=== PATIENT | male | born 1935 | race Caucasian/White ===

== ENCOUNTER 2023-10-07 18:37 | Observation (INO) | payer MEDICARE, OTHER, SELFPAY ==
[2023-10-07 15:50] VITALS: BP 140/61
[2023-10-07 16:00] VITALS: BP 137/59
[2023-10-07 16:06] LABS: % Basophils 0.2 % (0-2); % Eosinophils 1.3 % (0-6); % Immature Granulocytes 0.3 % (0-0.5); % Lymphocytes 14.2 % (20.5-51.1); % Monocytes 11.9 % (1.7-9.3); % Neutrophils 72.1 % (42.2-75.2); Absolute Eosinophils 0.1 10^3/uL (0-0.7); Absolute Lymphocytes 1.5 10^3/uL (1.2-3.4); Absolute Monocytes 1.2 10^3/uL (0.1-0.6); Absolute Neutrophils 7.4 10^3/uL (1.4-6.5); Hemoglobin 13.8 g/dL (13.0-18.0); Mean Corp Hgb Conc. 35.4 g/dL (33.0-37.0); Mean Corpuscular Hgb 33.9 pg (27.0-31.0); Mean Corpuscular Volume 95.8 fL (80.0-94.0); Mean Platelet Volume 10.6 fL (7.4-10.4); Nucleated Red Blood Cells % 0 % (-); Platelet Count 188 10^3/uL (130-400); Red Blood Cell Count 4.07 10^6/uL (4.70-6.10); Red Cell Dist. Width 12.4 % (11.5-14.5); White Blood Cell Count 10.3 10^3/uL (4.8-10.8)
[2023-10-07 16:52] LABS: Blood Urea Nitrogen 18 mg/dl (9-20); Calcium 8.5 mg/dl (8.4-10.2); Carbon Dioxide 24 mmol/L (22-30); Chloride 102 mmol/L (98-107); Glucose 167 mg/dl (70-99); Sodium 133 mmol/L (135-145); eGFR > 60.00
[2023-10-07 17:00] VITALS: BP 135/70
[2023-10-07] MEDS: NSS 1000 IV ×2 (17:03→21:56)
[2023-10-07 17:09] LABS: Venous Blood Gas B.E. 0.3 mmol/L (-4 to +4); Venous Blood Gas HCO3 23.5 mmol/L (22-27); Venous Blood Gas O2 Sat % 98.8 %; Venous Blood Gas pCO2 33 mmHg (35-48); Venous Blood Gas pH 7.46 (7.32-7.43); Venous Blood Gas pO2 95 mmHg (30-50)
[2023-10-07 17:16] LABS: Potassium 3.8 mmol/L (3.5-5.1)
--- NOTE | 2023-10-07 17:55 | ED.GENMED ---
History of Present Illness
General
Chief Complaint: Weakness
Time Seen by Provider: 10/07/23 16:10
Travel History
Have you had any contact with someone who has COVID-19?: No
Do you have any symptoms of coronavirus? Fever > 100 degrees, chills, cough, shortness of breath, sore throat, loss of taste or smell, muscle aches, or headache?: No
History of Present Illness
History of Present Illness:
87-year-old male with history of dementia, hypertension, and hyperlipidemia presents to the emergency department for evaluation of generalized weakness. Resides at [facility]. Apparently on Wednesday he had a urinalysis suggestive
of UTI and was started on cephalexin 500 mg 3 times daily. Since that time his p.o. intake is diminished and according to family while he is normally quite active and ambulates with a walker he has been unable to get up without assist x 2. He is
oriented to his baseline. Outpatient chest x-ray today was suggestive of pneumonia and he was started on doxycycline this morning. Patient denies any complaints at this time
Past History
Past History
ED Past Medical History: HTN, Hypercholesterolemia and Psychiatric (Anxiety)
Social History
Tobacco: Former smoker
Alcohol: Occasional
Drug: None
Personal:
Living: with family
Family History
Family History: Other (non contributory)
Review of Systems
Review of Systems
Allergies reviewed?: Yes
All Other Systems: ROS reviewed and negative except as documented in HPI and ROS
Phy Exam
Physical Exam
Physical Exam:
GEN: Well appearing, NAD, WDWN
HEENT: Oral mucosa dry no scleral icterus
Cardiac: Regular rate and rhythm, no murmurs
Lung: No respiratory distress, no tachypnea, lungs clear to auscultation bilaterally
MSK: No gross deformity or injuries
Skin: Good color, no pallor or jaundice, no rashes
Neuro: Alert and oriented to self only, disoriented to time and events which is baseline per family, moves all 4 extremities symmetrically however profoundly weak and unable to maintain for more than a few seconds against gravity x 4
Psych: Calm, cooperative
Course
Orders/Labs/Results
Orders:
Orders
10/07/23 15:56
Complete Blood Count/With Diff Urgent
10/07/23 16:26
Basic Metabolic Panel Urgent
10/07/23 16:56
CR Chest - 2 Views Urgent
Comment:
Reason For Exam: weakness
10/07/23 16:59
0.9% Sodium Chloride 1000 ml [Nss] 1,000 ml IV BOLUS
10/07/23 17:01
Potassium Urgent
Venous Blood Gas Urgent
%Oxygen/Room Air: 97
10/07/23 17:38
Urinalysis Reflex To Culture Urgent
Date Specimen was Collected: 10/07/23
Time Specimen was Collected: 17:39
10/07/23 17:54
Straight Cath As Directed
Frequency: One time now
Abnormal Lab Results
10/07/23 10/07/23 10/07/23
15:56 16:26 17:01
RBC 4.07 L 10^6/uL
(4.70-6.10)
MCV 95.8 H fL
(80.0-94.0)
MCH 33.9 H pg
(27.0-31.0)
MPV 10.6 H fL
(7.4-10.4)
Absolute Neuts (auto) 7.4 H 10^3/uL
(1.4-6.5)
Absolute Monos (auto) 1.2 H 10^3/uL
(0.1-0.6)
Lymphocytes % 14.2 L %
(20.5-51.1)
Monocytes % 11.9 H %
(1.7-9.3)
VBG pH 7.46 H
(7.32-7.43)
VBG pCO2 33 L mmHg
(35-48)
VBG pO2 95 H mmHg
(30-50)
Sodium 133 L mmol/L
(135-145)
Creatinine 0.5 L mg/dL
(0.7-1.3)
Glucose 167 H mg/dl
(70-99)
10/07/23 15:56
10/07/23 17:01
Vital Signs
Initial and Last Documented VS:
Initial Vital Signs
Temp Pulse Resp BP Pulse Ox
98.0 F 75 18 140/61 98
10/07/23 15:50 10/07/23 15:50 10/07/23 15:50 10/07/23 15:50 10/07/23 15:50
Last Documented Vital Signs
Temp Pulse Resp BP Pulse Ox
98.0 F 74 16 135/70 97
10/07/23 15:50 10/07/23 17:15 10/07/23 17:15 10/07/23 17:00 10/07/23 17:15
MDM/Problems Addressed
MDM/Problems Addressed:
Unclear etiology to the patient's weakness. Do not see any indication for CT of the head as he is at his neurologic baseline. Given significant functional decline that occurred rapidly will admit for further observation and IV fluids as he does
appear clinically dry
*Critical Care Note
Total Time (30-74mins, 75-104mins- exclusive of procedures): Not Applicable
ED Attending Note
-
Portions of this chart may have been created with voice recognition software.� Occasional wrong word or��sound alike� substitutions may have occurred due to the inherent limitations of voice recognition software.
Discharge Plan
Departure
Patient Disposition: Admit
Date of Disposition: 10/07/23
Time of Disposition: 17:58
Admit to: Med/Surg
Presentation/result/management discussed w/ accepting MD/DO: Hospitalist
Discharge Problem:
Generalized weakness
Prescriptions:
No Action
aspirin 81 MG tablet,delayed release (DR/EC)
81 mg PO DAILY
potassium chloride 20 mEq Packet
20 meq PO DAILY Qty: 0
atorvastatin 40 mg tablet
40 mg PO DAILY
memantine 10 mg tablet
10 mg PO DAILY
galantamine 24 mg capsule,ext rel. pellets 24 hr
24 mg PO DAILY
cholecalciferol (vitamin D3) [Vitamin D3] 25 mcg (1,000 unit) Capsule
25 mcg PO DAILY
coenzyme Q10 200 mg Capsule
200 mg PO DAILY
magnesium hydroxide [Milk of Magnesia] 400 mg/5 mL Suspension
30 ml PO HS PRN (Reason: if no bm x 3 days)
cyanocobalamin (vitamin B-12) [Vitamin B-12] 500 mcg Tablet
1,000 mcg PO DAILY
psyllium Powder
1 tsp PO DAILY
bisacodyl [Dulcolax (bisacodyl)] 10 mg Suppository
10 mg CA DAILY PRN (Reason: if no results for MOM)
Acidophilus Capsule
1 cap PO BID
doxycycline hyclate 100 mg tablet
100 mg PO BID
calcium carbonate-vitamin D3 [Calcium 600 + D(3)] 600 mg-10 mcg (400 unit) Tablet
1 tab PO DAILY
magnesium oxide 400 mg magnesium Tablet
400 mg PO Q48H
acetaminophen 325 mg tablet
650 mg PO Q4H PRN (Reason: mild pain/temp> 100.4F)
olanzapine 2.5 mg tablet
2.5 mg PO HS
Interventions
Interventions:
*Risk Screen - Suicide Last Done: 10/07/23 15:45
*General Assessment Last Done: 10/07/23 15:45
*Neglect/Abuse Screening Last Done: 10/07/23 15:45
*ED COVID-19 Vaccine History Last Done: 10/07/23 15:45
ED- Cardiac Assessment Last Done: 10/07/23 15:45
ED- Neurological Assessment Last Done: 10/07/23 15:45
ED- Pulmonary Assessment Last Done: 10/07/23 15:45
[2023-10-07 18:00] VITALS: BP 118/81
[2023-10-07 18:02] LABS: Urine Albumin Trace (Neg - Trace); Urine Bilirubin Negative (Negative); Urine Character Clear (Clear); Urine Color Yellow; Urine Glucose Negative (Negative); Urine Ketone Negative (Negative); Urine Leukocyte 1+ (Negative); Urine Nitrite Negative (Negative); Urine Occult Blood 3+ (Negative); Urine Specific Gravity 1.025 (<1.030); Urine Urobilinogen Negative (Neg - 1+)
--- NOTE | 2023-10-07 18:23 | HPS.HSE ---
Family Physician
-
Family Physician: Quique Cardona
Chief Complaint
-
Weakness
History of Present Illness
87-year-old male with dementia [facility] from [facility] for evaluation of anorexia, weakness for the past few days. Poor oral intake.
Medical History
Past Medical History
Past Medical History: Reports Other
Additional Past Medical History:
Alzheimer's dementia
Essential hypertension
Hyperlipidemia
Anxiety disorder
Past Surgical History: Reports None
Social History
Tobacco: Non-smoker
Alcohol: None
Drug: None
Living: Group Home
Family History
Family History: Not pertinent
Allergies / Home Medications
Allergies reflects when Allergies were last updated in [employer].
Home Medications with original date entered in [employer]
Allergy/Medication List:
Allergies
Allergy/AdvReac Type Severity Reaction Status Date / Time
No Known Allergies Allergy Verified 06/14/23 10:58
Home Medications
aspirin 81 mg tablet,delayed release 81 mg PO DAILY Blood Clot Prevention/Tx 10/06/16
potassium chloride 20 mEq oral packet 20 meq PO DAILY Supplement ##0 10/06/16
atorvastatin 40 mg tablet 40 mg PO DAILY High Cholesterol 05/25/23
galantamine 24 mg 24 hr capsule,extended release 24 mg PO DAILY cognitive decline 05/25/23
memantine 10 mg tablet 10 mg PO DAILY cognitive decline 05/25/23
cholecalciferol (vitamin D3) 25 mcg (1,000 unit) capsule (Vitamin D3) 25 mcg PO DAILY Supplement 06/14/23
coenzyme Q10 200 mg capsule 200 mg PO DAILY Supplement 06/14/23
Lactobacillus acidophilus (Acidophilus capsule) 1 cap PO BID 10/07/23
acetaminophen 325 mg tablet 650 mg PO Q4H PRN mild pain/temp> 100.4F 10/07/23
bisacodyl 10 mg rectal suppository (Dulcolax (bisacodyl)) 10 mg MS DAILY PRN if no results for MOM 10/07/23
calcium carbonate 600 mg-vitamin D3 10 mcg (400 unit) tablet (Calcium 600 + D(3)) 1 tab PO DAILY 10/07/23
cyanocobalamin (vitamin B-12) 500 mcg tablet (Vitamin B-12) 1,000 mcg PO DAILY 10/07/23
doxycycline hyclate 100 mg tablet 100 mg PO BID 10/07/23
magnesium hydroxide 400 mg/5 mL oral suspension (Milk of Magnesia) 30 ml PO HS PRN if no bm x 3 days 10/07/23
magnesium oxide 400 mg PO Q48H 10/07/23
olanzapine 2.5 mg tablet 2.5 mg PO HS 10/07/23
psyllium 1 tsp PO DAILY 10/07/23
Review of Systems
-
Unable to obtain full review of systems at this time due to: Dementia
History Source: Patient
A 12 point ROS was completed and negative except as noted: Yes
Physical Exam
Vital Signs
Vital Signs
Temp Pulse Resp BP Pulse Ox
98.0 F 74 16 135/70 97
10/07/23 15:50 10/07/23 17:15 10/07/23 17:15 10/07/23 17:00 10/07/23 17:15
Physical Exam
General: Well Developed, Well Nourished, No Apparent Distress and Comfortable
HEENT: NormoCephalic and Anicteric; No Moist mucous membranes
Respiratory: Clear
Cardiac: S1/S2 and Regular Rhythm
GI: Soft, Non Tender and Non Distended
Genito-urinary: Deferred by me
Musculoskeletal: No Clubbing, No Cyanosis and No Edema
Skin: Warm and Dry
Neuro: Awake and Alert; No Oriented
Hematologic/Lymphatic: No Lymphadenopathy
Psych: Calm
Laboratory Results
-
10/07/23 15:56
10/07/23 17:01
Laboratory Results
Total Bilirubin Cancelled 10/07/23 16:26
AST Cancelled 10/07/23 16:26
ALT Cancelled 10/07/23 16:26
Alkaline Phosphatase Cancelled 10/07/23 16:26
Impression/Plan
-
Volume depletion -admit to MedSurg. Continue IV fluids. Suspect progression of underlying dementia as the utility driver of his anorexia.
Dysphagia -rule out aspiration. states that he does cough with drinking water. Consult speech therapy.
Essential hypertension -stable.
Hyperlipidemia -on atorvastatin.
Alzheimer's dementia
DNR -confirmed with family.
I had a long discussion with patient's son and at the bedside. I recommend consideration of hospice given his dementia with suspected progression. Family is receptive and is interested in speaking with hospice. Consult will be placed.
[2023-10-07 20:34] VITALS: BP 147/80
[2023-10-07] MEDS: HEPARIN 5000 UNITS SC (21:55)
[2023-10-07] MEDS: VISBIOME 1 CAP PO (21:56)
[2023-10-07] MEDS: ZYPREXA 2.5 MG PO (21:56)
[2023-10-07 22:42] VITALS: BP 137/82
--- NOTE | 2023-10-07 22:51 | PTCARENOTE ---
Rec'd pt from the ER at 2030. pulled over in to bed and weighed on bed scale. Pt is awake but confused. Only able to state his name and birthday. is at the bedside. Assisted with his admission. She did make RN aware that pt is straight cathed
at the nursinghome every 8 hours. Fatuma CUEVAS was made aware and placed order. NSS started as ordered. Will continue to monitor closely.
[2023-10-08 08:02] VITALS: BP 162/93
--- NOTE | 2023-10-08 09:44 | W.PN.HOSP.TC ---
Addendum entered and electronically signed by Dimas Pope DO 10/08/23 11:12:
I spoke with patient's on the phone. I recommend discharge on hospice. She plans to meet with hospice today. Medically stable for discharge.
Original Note:
Today's Communication/Plan
-
Await hospice meeting
Discharge planning
Assessment / Plan
Assessment / Plan
Gen-awake, alert, no acute distress, confused
HEENT-NC, AT, anicteric, clear oral mm
Neck-supple
CV-reg, no M, +S1/S2
Lungs-clear B/L
Abd-soft, NT, ND
Ext-no edema
Musculoskeletal-no cyanosis, clubbing
Skin-warm and dry
Neuro-grossly non-focal
Psych-calm, cooperative
Volume depletion -� Suspect progression of underlying dementia as the shuttle bus driver of his anorexia. Volume status improved with IV fluids.
Dysphagia -rule out aspiration.� states that he does cough with drinking water.� Speech therapy recommends regular diet with thin liquids.
Essential hypertension -stable.
Hyperlipidemia -on atorvastatin.
Alzheimer's dementia
DNR -confirmed with family.
Dispo -medically stable for discharge today after hospitalist meet with family. Case management aware.
Anticipated Discharge: Today
Subjective/Interval History
-
Date of Service: October 08, 2023
Patient seen and examined. No complaints. Looks comfortable. Confused.
Objective Data
-
Vital Signs:
Vital Signs
Temp Pulse Resp BP Pulse Ox
98.5 F 103 22 162/93 95
10/08/23 08:02 10/08/23 08:02 10/08/23 08:02 10/08/23 08:02 10/08/23 08:02
I&O
10/07/23 10/08/23 10/09/23
06:59 06:59 06:59
Intake Total 960 / 960
Output Total 700 / 700
Balance 260 / 260
Review of Systems
-
Unable to obtain full review of systems at this time due to: Dementia
History Source: Patient
All other systems: Reviewed and negative
[2023-10-08] MEDS: ASPIR LOW (ENTERIC COATED) 81 MG PO (10:00)
[2023-10-08] MEDS: KLOR-CON 20 MEQ PO (10:01)
[2023-10-08] MEDS: HEPARIN 5000 UNITS SC ×2 (10:01→20:46)
[2023-10-08] MEDS: VITAMIN B-12 1000 MCG PO (10:01)
[2023-10-08] MEDS: OSCAL 500 + D 500 MG PO (10:01)
[2023-10-08] MEDS: VITAMIN D3 (cholecalciferol) 25 MCG PO (10:01)
[2023-10-08] MEDS: LIPITOR 40 MG PO (10:01)
[2023-10-08] MEDS: NAMENDA 10 MG PO (10:01)
[2023-10-08] MEDS: METAMUCIL, KONSYL 1 PACKET PO (10:01)
[2023-10-08] MEDS: VISBIOME 1 CAP PO ×2 (10:02→20:49)
[2023-10-08] MEDS: MAG-TAB SR 84 MG PO (10:02)
[2023-10-08] MEDS: NSS 1000 IV (10:04)
--- NOTE | 2023-10-08 10:25 | PTOTSP ---
Dysphagia Evaluation
Patient presents with signs concerning for WFL-mild oral stage differences and no signs concerning for pharyngeal dysphagia or aspiration. He is at an increased risk for dysphagia due to behaviors related to his dementia (i.e., using large bolus
size, taking several bites in a row without clearing mouth). He currently has no signs concerning for aspiration complications in that chest x-ray 10/07/2023 without PNA.
Recommend:
1. Regular, Thin Liquids
2. SUPERVISION with PO intake and ASSISTANCE to cut foods and use strategies below
3. Strategies: small single sips/bites, slow rate, alternate solids and liquids to assist with oral clearance
4. Medications 1 at a time with water
5. No further dysphagia therapy warranted at this time. Please reconsult as appropriate.
--- NOTE | 2023-10-08 11:15 | CM ---
Addendum entered by Marcela Montoya 10/08/23 16:20:
JOVEL form reviewed and signed with , placed in patients chart. Patients requesting a call tomorrow before patient is transported.
Addendum entered by Marcela Montoya 10/08/23 15:07:
CM met with patient and , Reina, initial assessment completed. Reina reports patient resides at [facility] in [place] and has been there about four months. Per Reina, before patient came to [facility], he was independent with ADLs and
IADLs, now patient uses a walker. Reina confirms patients PCP Dr. Moreno, pharmacy used is [facility] in [place]. CM discussed consult for hospice, patient agreeable. CM met with [facility] and Reina in family room, patient
agreeable to Hospice, [facility] CM spoke with Mary Kay from [facility], able to accept patient return with Hospice tomorrow. CM will complete ambulance transport forms and place in patients chart. CM will
continue to follow for discharge planning needs.
Plan; Discharge to [facility] with [facility] to accept tomorrow, will require ambulance transport.
[facility]:
Report: [phone]

Addendum entered by Marcela Montoya 10/08/23 11:20:
Per Mary Kay from [facility], patient [place] resident and is on a bed hold. Per Mary Kay, patient was mobile until recently, ambulated with a walker and required supervision level. CM awaiting PT/OT evaluations.
Original Note:
Patient seen bedside. CM left message with Mary Kay from [facility] to confirm patient is LTC. CM sent TT to hospice nurse, will meet with family today. Per Hospice nurse, patients not present. CM left voicemail for patients , requested
a return call. CM will continue to follow for discharge planning needs.
Plan; return to , awaiting hospice consult.
[2023-10-08] MEDS: TYLENOL 650 MG PO (12:00)
[2023-10-08 15:52] VITALS: BP 132/89
--- NOTE | 2023-10-08 15:56 | HOSPNOTE ---
Patient will be admitted into [facility] when he is discharged back to [facility] on Wednesday10/09/23.Spoke with his regarding Hospice Philosophy and care ,Mia Montoya CM was in attendance .Coordinated care with Penelope at [facility] .
[2023-10-08] MEDS: ZYPREXA 2.5 MG PO (22:59)
[2023-10-08 23:00] VITALS: BP 173/93
[2023-10-09 07:00] VITALS: BP 124/86
[2023-10-09] MEDS: OSCAL 500 + D 500 MG PO (08:17)
[2023-10-09] MEDS: METAMUCIL, KONSYL 1 PACKET PO (08:17)
[2023-10-09] MEDS: VITAMIN D3 (cholecalciferol) 25 MCG PO (08:17)
[2023-10-09] MEDS: NAMENDA 10 MG PO (08:17)
[2023-10-09] MEDS: KLOR-CON 20 MEQ PO (08:17)
[2023-10-09] MEDS: ASPIR LOW (ENTERIC COATED) 81 MG PO (08:17)
[2023-10-09] MEDS: VITAMIN B-12 1000 MCG PO (08:17)
[2023-10-09] MEDS: LIPITOR 40 MG PO (08:17)
[2023-10-09] MEDS: VISBIOME 1 CAP PO (08:17)
[2023-10-09] MEDS: HEPARIN 5000 UNITS SC (08:18)
--- NOTE | 2023-10-09 08:58 | W.DS.TRANS ---
DC Summary - [place]
-
Discharge Instructions:
Discharge Diagnosis/Procedures Volume depletion, Alzheimer's dementia
Diet Regular
Activity As tolerated
Driving Restrictions No driving
Bathing Restrictions None
Other Services Hospice
Instructions:
Stand-Alone Forms:
Changes to Home Medications: No
Discharge Medications:
DC Medications w/original date entered in [employer]
galantamine 24 mg 24 hr capsule,extended release 24 mg PO DAILY cognitive decline 05/25/23
memantine 10 mg tablet 10 mg PO DAILY cognitive decline 05/25/23
acetaminophen 325 mg tablet 650 mg PO Q4H PRN mild pain/temp> 100.4F 10/07/23
bisacodyl 10 mg rectal suppository (Dulcolax (bisacodyl)) [address] DAILY PRN if no results for MOM 10/07/23
olanzapine 2.5 mg tablet 2.5 mg PO HS 10/07/23
psyllium 1 tsp PO DAILY 10/07/23
Home Medication Changes
Pending Results: No
--- NOTE | 2023-10-09 10:20 | CM ---
Chart reviewed. Patient stable for discharge to [facility] with hospice. CM spoke with hospice nurse, Azalea, who confirms that patient will be signed on this afternoon. BLS transport arranged for 11:30am. Facility, hospice, and family
aware. No additional questions or concerns. CM remains available.
[facility]:
Report: [phone]

PLAN: Plan for discharge to [facility] with hospice.
--- NOTE | 2023-10-09 10:25 | W.PN.HOSP.TC ---
Today's Communication/Plan
-
Discharge
Assessment / Plan
Assessment / Plan
Gen-awake, alert, no acute distress, confused
HEENT-NC, AT, anicteric, clear oral mm
Neck-supple
CV-reg, no M, +S1/S2
Lungs-clear B/L
Abd-soft, NT, ND
Ext-no edema
Musculoskeletal-no cyanosis, clubbing
Skin-warm and dry
Neuro-grossly non-focal
Psych-calm, cooperative
Volume depletion -� Suspect progression of underlying dementia as the food service driver of his anorexia. Volume status improved with IV fluids.
Dysphagia -rule out aspiration.� states that he does cough with drinking water.� Speech therapy recommends regular diet with thin liquids.
Essential hypertension -stable.
Hyperlipidemia -on atorvastatin.
Alzheimer's dementia -with progression. Hospice appropriate.
DNR -confirmed with family.
Dispo -medically stable for discharge today [facility]. Family updated at the bedside.
Anticipated Discharge: Today
Subjective/Interval History
-
Date of Service: October 09, 2023
Patient seen and examined. Remains confused. Not interactive. Family at the bedside.
Objective Data
-
Vital Signs:
Vital Signs
Temp Pulse Resp BP Pulse Ox
98.3 F 90 22 124/86 95
10/09/23 07:00 10/09/23 07:00 10/09/23 07:00 10/09/23 07:00 10/09/23 07:00
I&O
10/08/23 10/09/23 10/10/23
06:59 06:59 06:59
Intake Total 960 / 960 600 / 600
Output Total 700 / 700 975 / 975
Balance 260 / 260 -375 / -375
Review of Systems
-
Unable to obtain full review of systems at this time due to: Dementia
History Source: Patient
All other systems: Reviewed and negative
--- NOTE | 2023-10-09 11:00 | PTCARENOTE ---
Pt DC'd back to [facility] (home) w Hospice. Family given copy of DC instructions. Report called to [facility] @ [phone].
== END 2023-10-09 11:16 ==
LOC: 4 WEST ACU 18:37
PROVIDERS: Physician Assistant; ADMITTING PHYSICIAN Hospitalist; EMERGENCY PHYSICIAN Emergency Medicine; FAMILY PHYSICIAN Internal Medicine
DX: E86.9 Volume depletion, unspecified (principal); R53.1 Weakness; G30.9 Alzheimer's disease, unspecified; F02.80 Dementia in other diseases classified elsewhere, unspecified severity, without behavioral disturbance, psychotic disturbance, mood disturbance, and anxiety; I10 Essential (primary) hypertension; R13.10 Dysphagia, unspecified; R62.7 Adult failure to thrive; E78.00 Pure hypercholesterolemia, unspecified; Z87.891 Personal history of nicotine dependence; Z79.82 Long term (current) use of aspirin; Z66 Do not resuscitate; Z68.20 Body mass index [BMI] 20.0-20.9, adult
CPT/HCPCS: 71046; 80048; 81003; 81015; 82805; 84132; 85025; 87070; 87086; 92610; 96360; 99285; G0378

== ENCOUNTER 2023-10-09 23:22 | Emergency (ER) | payer MEDICARE, OTHER, SELFPAY ==
[2023-10-09 23:24] VITALS: BP 131/87
--- NOTE | 2023-10-09 23:30 | ED.GENMED ---
History of Present Illness
General
Chief Complaint: Urinary Symptoms
Source: ambulance crew
Time Seen by Provider: 10/09/23 23:30
History of Present Illness
History of Present Illness:
87-year-old male with past medical history of dementia, hypertension, hyperlipidemia, neurogenic bladder, currently on hospice presenting to the emergency department from [facility] after patient was unable to be straight cath today and hospice
nurse was unable to place Zimmer catheter. [facility] is requesting that we place a Zimmer catheter and then patient be discharged back to them. does not want patient have any further emergent care, urinalysis done or any other treatment.
Patient unable to give any history secondary to his dementia.
Past History
Past History
ED Past Medical History: HTN, Hypercholesterolemia and Psychiatric (Anxiety)
ED Past Surgical History: Orthopedic
Social History
Tobacco: Former smoker
Alcohol: Occasional
Drug: None
Personal:
Living: care home
Family History
Family History: Other (non contributory)
Review of Systems
Review of Systems
All Other Systems: ROS reviewed and negative except as documented in HPI and ROS
Phy Exam
Physical Exam
Physical Exam:
GENERAL: Intermittently agitated but directable with voice
EYE: conjunctiva clear
Head: Normocephalic atraumatic
NECK: Supple,
ENT: Dry mucous membranes
LUNGS: no acute respiratory distress
Abdomen is distended
NEUROLOGICAL: Unable to assess
SKIN: Warm and dry, skin intact.
MUSCULOSKELETAL: well perfused.
PSYCH: Unable to assess
Scores
Heart Failure Risk
Heart Failure Risk Score: Not Applicable
Heart Score for Chest Pain Patients
STEMI patient?: Not applicable
Withdrawal Assessment of Alcohol
Withdrawal Assessment Completed?: Not applicable
MDM/Problems Addressed
Differential Diagnosis Includes:
BPH, UTI, kidney injury
MDM/Problems Addressed:
87-year-old male present emergency department for evaluation ultimately to have Zimmer catheter placed and then be discharged back to his hospice care at [facility]. Bladder scan at [facility] showed greater than 700 mL. We were able to place
a Zimmer catheter here without much difficulty. There was some hematuria. Will leave Zimmer catheter in place. Transport to be arranged back to [facility] for continued hospice care. I did contact patient's and left a voicemail to let her
know patient had Zimmer catheter placed and will be discharged back to [facility].
*Pulse Oximetry
Patient hypoxic: no
*Critical Care Note
Total Time (30-74mins, 75-104mins- exclusive of procedures): Not Applicable
ED Attending Note
-
Portions of this chart may have been created with voice recognition software.� Occasional wrong word or��sound alike� substitutions may have occurred due to the inherent limitations of voice recognition software.
Discharge Plan
Departure
Patient Disposition: Home (Routine Discharge)
Date of Disposition: 10/09/23
Time of Disposition: 23:30
Patient with high blood pressure during this ER visit?: No
Discharge Problem:
Acute urinary retention, Hospice care
Instructions: How to Care for Your Zimmer Catheter, Male
Prescriptions:
No Action
memantine 10 mg tablet
10 mg PO DAILY
galantamine 24 mg capsule,ext rel. pellets 24 hr
24 mg PO DAILY
psyllium Powder
1 tsp PO DAILY
bisacodyl [Dulcolax (bisacodyl)] 10 mg Suppository
10 mg [place] DAILY PRN (Reason: if no results for MOM)
acetaminophen 325 mg tablet
650 mg PO Q4H PRN (Reason: mild pain/temp> 100.4F)
olanzapine 2.5 mg tablet
2.5 mg PO HS
--- NOTE | 2023-10-09 23:48 | EDRN ---
Patient from [facility]. stated that several nurses and staff attempted to straight cath patient throughout the day. Patient arrives with distended lower ABD. 16 vietnamese coude catheter was placed with over 1L of urine. Urine was bloody in
color initially which cleared to a charlene color. Patient has dementia and not answering any questions. Patient is on hospice and the requested we place the Zimmer and discharge the patient back to [facility]. She wants no testing done.
[2023-10-10 01:00] VITALS: BP 111/82
== END 2023-10-10 02:52 | disposition home or self-care (01) ==
LOC: EMR 23:22
PROVIDERS: EMERGENCY PHYSICIAN Student in an Organized Health Care Education/Training Program; FAMILY PHYSICIAN Internal Medicine
DX: R33.9 Retention of urine, unspecified (principal); Z51.5 Encounter for palliative care; E78.00 Pure hypercholesterolemia, unspecified; F03.90 Unspecified dementia, unspecified severity, without behavioral disturbance, psychotic disturbance, mood disturbance, and anxiety; I10 Essential (primary) hypertension; N31.9 Neuromuscular dysfunction of bladder, unspecified; Z87.891 Personal history of nicotine dependence
CPT/HCPCS: 99282